=== PATIENT | male | born 1980 | race African-American/Black ===

== ENCOUNTER → 2016-06-09 02:47 | Emergency (ER) | payer BC ==
--- NOTE | ~2016-06-09 | EKG ---
PATIENT: CAMERON BRAR UNIT #: [id number] Ventricular Rate: 75 BPM Atrial Rate: 75 BPM P-R Interval: 150 ms QRS Duration: 84 ms Q-T Interval: 368 ms QTC Calculation(Bezet): 410 ms P [place]: 45 degrees Calculated R [place]: 33 degrees Calculated T [place]: 15 degrees Diagnosis Line: Normal sinus rhythm Diagnosis Line: Normal ECG Diagnosis Line: Diagnosis Line: Confirmed by GEORGIE TOVAR MD ([id number]) on Diagnosis Line: 06/10/2016 6:37:21 AM INTERPRETING LACIE GILLESPIE
[~2016-06-09 02:47] MED LIST: PHENERGAN SUPP25 MG PR; ROBAXIN500 MG PO; VOLTAREN75 MG PO
== END | disposition home or self-care (01) ==
LOC: CED 02:47
DX: R55 Syncope and collapse (principal); F41.0 Panic disorder [episodic paroxysmal anxiety]; F41.9 Anxiety disorder, unspecified; F17.200 Nicotine dependence, unspecified, uncomplicated
CPT/HCPCS: 93005; 99285